=== PATIENT | female | born 1980 | race Caucasian/White ===

== ENCOUNTER → 2016-09-23 | Outpatient (CLI) | payer OTHER ==
[~2016-09-23] MED LIST: COLACE100 MG PO; DEPO-PROVER150 MG/ML IM; IBUPROFEN800 MG PO; MACROBID100 MG PO; PERCOCET 5/31 TABLET PO; TYLENOL WITH C1 EACH PO; ~No Medications
== END | disposition home or self-care (01) ==
LOC: CDC 14:27
DX: Z01.810 Encounter for preprocedural cardiovascular examination (principal); K42.9 Umbilical hernia without obstruction or gangrene
CPT/HCPCS: 93000

== ENCOUNTER 2016-09-26 07:47 | Day surgery (SDC) | payer OTHER ==
[~2016-09-26] VITALS: Ht 165.1 cm; Wt 127.7 kg
[~2016-09-26 07:47] MED LIST changes: -COLACE100 MG PO; -PERCOCET 5/31 TABLET PO
[2016-09-26 08:14] VITALS: BP 141/92
[2016-09-26] MEDS ORDERED: PERCOCET 5/31 TABLET PO (09:20)
[2016-09-26] MEDS ORDERED: COLACE100 MG PO (09:20)
[2016-09-26 12:06] VITALS: BP 156/82
[2016-09-26 13:06] VITALS: BP 119/73
[2016-09-26 13:50] VITALS: BP 132/63
== END 2016-09-26 13:50 | disposition home or self-care (01) ==
LOC: SDC 07:47 → 2SOUTH 08:16 → EDSTATUS 08:25 → SDC 08:28
DX: K43.2 Incisional hernia without obstruction or gangrene (principal); R73.03 Prediabetes; F17.200 Nicotine dependence, unspecified, uncomplicated
CPT/HCPCS: C1781; J0131; J0330; J1100; J1170; J1885; J2250; J2405; J2710; J2765; J3010

== ENCOUNTER 2017-02-06 07:35 | Day surgery (SDC) | payer OTHER ==
[~2017-02-06] VITALS: Ht 165.1 cm; Wt 134.0 kg
[~2017-02-06 07:35] MED LIST changes: +COLACE100 MG PO; +PERCOCET 5/31 TABLET PO; +[UNRECOGNIZED DRUG - OTHER]
[2017-02-06 10:25] VITALS: BP 142/80
[2017-02-06 10:40] LABS: MCH 28.8 PG (29.0-34.0); MCV 87.5 FL (83-99); MEAN PLAT.VOLUME 9.2 uM^3 (9.5-12.4); PLATELET COUNT 298 K/uL (156-360); RBC DIS.WIDTH-CV 13.9 % (11.8-14.6); RBC DIS.WIDTH-SD 44.3 % (39-53); RED BLOOD COUNT 5.03 M/uL (3.80-5.20); WHITE BLOOD COUNT 8.2 K/uL (4.1-10.2)
[2017-02-06] MEDS ORDERED: ENDOCET 5-3251 EACH PO (14:06)
[2017-02-06] MEDS ORDERED: IBUPROFEN800 MG PO (14:06)
[2017-02-06 15:00] VITALS: BP 132/86
[2017-02-06 15:56] VITALS: BP 141/65
== END 2017-02-06 16:25 | disposition home or self-care (01) ==
LOC: SDC 07:35
PROVIDERS: Obstetrics & Gynecology
DX: Z30.2 Encounter for sterilization (principal); D06.9 Carcinoma in situ of cervix, unspecified; N72 Inflammatory disease of cervix uteri; K66.0 Peritoneal adhesions (postprocedural) (postinfection); Z68.42 Body mass index [BMI] 45.0-49.9, adult; E66.01 Morbid (severe) obesity due to excess calories; Z88.0 Allergy status to penicillin; F17.210 Nicotine dependence, cigarettes, uncomplicated; Z80.0 Family history of malignant neoplasm of digestive organs; Z82.5 Family history of asthma and other chronic lower respiratory diseases; Z83.3 Family history of diabetes mellitus; Z82.49 Family history of ischemic heart disease and other diseases of the circulatory system
CPT/HCPCS: 84702; 85027; 86900; 86901; 88305; J0131; J0330; J1100; J1170; J1885; J2250; J2310; J2405; J2765; J3010

== ENCOUNTER 2017-06-21 10:15 | Emergency (ER) | payer OTHER ==
[~2017-06-21] VITALS: Ht 165.1 cm; Wt 133.0 kg
[~2017-06-21 10:15] MED LIST changes: +ENDOCET 5-3251 EACH PO
[2017-06-21 10:19] VITALS: BP 148/79
[2017-06-21] MEDS ORDERED: CLEOCIN300 MG PO (11:08)
[2017-06-21] MEDS ORDERED: ULTRAM50 MG PO (11:08)
== END 2017-06-21 11:20 | disposition home or self-care (01) ==
LOC: EME 10:15
DX: K02.9 Dental caries, unspecified (principal); F17.200 Nicotine dependence, unspecified, uncomplicated; Z88.0 Allergy status to penicillin
CPT/HCPCS: 99281; 99283